=== PATIENT | male | born 1975 | race Two or more races ===

== ENCOUNTER 2021-08-13 20:18 | Emergency (ER) | payer OTHER ==
[~2021-08-13] VITALS: Ht 180.3 cm; Wt 77.1 kg
[2021-08-13] MEDS ORDERED: IBU800 MG PO (23:53)
[2021-08-13] MEDS ORDERED: SILVADENE20 GM TOP (23:53)
[2021-08-14] MEDS ORDERED: CEPHALEXIN500 MG PO (01:40)
== END 2021-08-14 01:49 ==
LOC: ER 20:18
DX: T07.XXXA Unspecified multiple injuries, initial encounter (principal); V19.9XXA Pedal cyclist (driver) (passenger) injured in unspecified traffic accident, initial encounter; Y92.89 Other specified places as the place of occurrence of the external cause; Y99.9 Unspecified external cause status